=== PATIENT | female | born 1960 | race African-American/Black ===

== ENCOUNTER 2016-06-12 09:13 | Inpatient (IN) | payer OTHER ==
[~2016-06-12] VITALS: Ht 162.6 cm; Wt 73.5 kg
[~2016-06-12 09:13] MED LIST: ALPR0.5T96 PO; [UNRECOGNIZED DRUG - CODE]
[2016-06-12] MEDS ORDERED: NITROGLYCERIN 0.4MG TABLET SL SL PRN (10:00)
[2016-06-12 10:15] LABS: BASOPHILS % 2.5 % (0.0-2.0); DIFFERENTIAL COMMENT 0; EOSINOPHILS % 0.1 % (0.0-5.0); HEMATOCRIT. 35.1 % (36.0-48.0); HEMOGLOBIN. 11.7 g/dL (12.0-16.0); LYMPHOCYTES % 29.9 % (20.0-50.0); MEAN CORPUSCULAR HEMOGLOBIN 34.1 pg (28.0-32.0); MEAN CORPUSCULAR HGB CONC 33.2 g/dL (31.0-37.0); MEAN CORPUSCULAR VOLUME 102.7 fL (81.0-99.0); MEAN PLATELET VOLUME 7.6 fl (7.4-10.4); MONOCYTES % 5.8 % (2.0-8.0); NEUTROPHILS % 61.7 % (40.0-76.0); PLATELET 193 x1000/uL (130-400); RED BLOOD CELL COUNT 3.42 mill/uL (4.2-5.4); RED CELL DISTRIBUTION WIDTH 15.9 % (11.6-14.6); WHITE BLOOD COUNT 4.8 x1000/uL (4.5-11.0)
[2016-06-12 10:16] LABS: INR 1.1; PROTHROMBIN TIME 11.4 sec
[2016-06-12 10:23] LABS: ANION GAP 23; CALCIUM 8.5 mg/dL (8.5-10.1); CARBON DIOXIDE 21 mEq/L (21-32); CHLORIDE 105 mEq/L (98-107); INDEX HEMOLYSI 1 (1-3); INDEX ICTERIC 1 (1-4); INDEX LIPEMIC 1 (1-3); UREA NITROGEN BLOOD 12 mg/dL (7-21); eGFR > 60 mL/min (>60)
[2016-06-12 10:25] LABS: NT PRO B-TYPE NATRIURETIC PEP 111 pg/mL (5-125); TROPONIN I 0.19 ng/mL (0.00-0.04)
[2016-06-12 10:28] LABS: ETHANOL BLOOD 333 mg/dL
[2016-06-12] MEDS ORDERED: HYDROCODONE/ACETAMINOPHEN 5/325MG TABLET PO PRN (12:30)
[2016-06-12] MEDS ORDERED: MAGNESIUM/ALUMINUM HYDROXIDE/SIMETHICONE 30ML UDC PO PRN (12:30)
[2016-06-12] MEDS ORDERED: CLONIDINE 0.1MG TABLET PO PRN (12:30)
[2016-06-12] MEDS ORDERED: ONDANSETRON HCL 4MG/2ML VIAL IV PRN (12:30)
[2016-06-12] MEDS ORDERED: ACETAMINOPHEN 325MG TABLET PO PRN (12:30)
[2016-06-12] MEDS ORDERED: IPRATROPIUM/ALBUTEROL 0.5-3(2.5)MG/3ML NEB INH PRN (12:30)
[2016-06-12] MEDS ORDERED: MVI, ADULT NO.1 10 ML, FOLIC ACID 1 MG, THIAMINE HCL 100 MG in SODIUM CHLORIDE 0.9% 1,0... IV ONE ×4 (15:00)
[2016-06-12 15:04] VITALS: BP 120/74
[2016-06-12] MEDS: OMEPRAZOLE 20MG CAPSULE EXTENDED RELEASE PO SCH (15:37)
[2016-06-12] MEDS: CHLORDIAZEPOXIDE 25MG CAPSULE PO SCH ×2 (15:38→21:38)
[2016-06-12] MEDS: ENOXAPARIN 40MG/0.4ML SYR SUBCUT SCH (15:38)
[2016-06-12 15:51] VITALS: BP 120/74
[2016-06-12] MEDS: LORAZEPAM 2MG/ML CPJ IV PRN ×3 (16:54→21:38)
[2016-06-12 18:36] LABS: ALANINE AMINOTRANSFERASE 59 IU/L (13-61); ALBUMIN 3.2 g/dL (3.4-5.0); ANION GAP 19; BILIRUBIN DIRECT 0.1 mg/dL (0.0-0.2); CALCIUM 8.1 mg/dL (8.5-10.1); CARBON DIOXIDE 23 mEq/L (21-32); CHLORIDE 103 mEq/L (98-107); CREATINE KINASE 83 IU/L (26-192); CREATINE KINASE MB FRACTION 0.5 ng/mL (0.5-3.6); INDEX HEMOLYSI 1 (1-3); INDEX ICTERIC 1 (1-4); INDEX LIPEMIC 1 (1-3); TROPONIN I 0.19 ng/mL (0.00-0.04); UREA NITROGEN BLOOD 11 mg/dL (7-21); eGFR > 60 mL/min (>60)
[2016-06-12 20:00] VITALS: BP 116/69
[2016-06-12] MEDS ORDERED: ZOLPIDEM TARTRATE 5MG TABLET PO PRN (21:00)
[2016-06-12] MEDS: METOPROLOL TARTRATE 25MG TABLET PO SCH (21:38)
[2016-06-13] VITALS: BP 131/75
[2016-06-13] MEDS: SODIUM CHLORIDE 0.9% 1,000 ML IV SCH ×2 (00:51→12:26)
[2016-06-13 01:22] LABS: CREATINE KINASE MB FRACTION 0.5 ng/mL (0.5-3.6); TROPONIN I 0.21 ng/mL (0.00-0.04)
[2016-06-13 04:00] VITALS: BP 146/89
[2016-06-13] MEDS: OMEPRAZOLE 20MG CAPSULE EXTENDED RELEASE PO SCH (06:13)
[2016-06-13] MEDS: CHLORDIAZEPOXIDE 25MG CAPSULE PO SCH ×2 (06:13→14:01)
[2016-06-13 06:54] LABS: CLARITY URINE CLEAR (CLEAR); COLOR URINE YELLOW (YELLOW); GLUCOSE URINE NEGATIVE (NEGATIVE); KETONES URINE 3+ (NEGATIVE); LEUKOCYTE ESTERASE URINE NEGATIVE (NEGATIVE); NITRITE URINE NEGATIVE (NEGATIVE); OCCULT BLOOD URINE NEGATIVE (NEGATIVE); PROTEIN URINE TRACE (NEGATIVE); SPECIFIC GRAVITY URINE 1.031 (1.005-1.030); UROBILINOGEN URINE 0.2 E.U./dL (0.2-1.0)
[2016-06-13 06:58] LABS: BASOPHILS % 1.2 % (0.0-2.0); DIFFERENTIAL COMMENT 0; EOSINOPHILS % 1.2 % (0.0-5.0); HEMATOCRIT. 33.3 % (36.0-48.0); HEMOGLOBIN. 11.1 g/dL (12.0-16.0); LYMPHOCYTES % 34.4 % (20.0-50.0); MEAN CORPUSCULAR HEMOGLOBIN 33.7 pg (28.0-32.0); MEAN CORPUSCULAR HGB CONC 33.4 g/dL (31.0-37.0); MEAN CORPUSCULAR VOLUME 100.9 fL (81.0-99.0); MEAN PLATELET VOLUME 8.2 fl (7.4-10.4); MONOCYTES % 12.1 % (2.0-8.0); NEUTROPHILS % 51.1 % (40.0-76.0); PLATELET 176 x1000/uL (130-400); RED CELL DISTRIBUTION WIDTH 16.1 % (11.6-14.6); WHITE BLOOD COUNT 4.3 x1000/uL (4.5-11.0)
[2016-06-13] MEDS: LORAZEPAM 2MG/ML CPJ IV PRN (07:22)
[2016-06-13 07:31] LABS: THYROID STIMULATING HORMONE 2.1 uIU/mL (0.36-3.74)
[2016-06-13 08:00] VITALS: BP 115/76
[2016-06-13 08:13] LABS: MUCUS URINE 1+ /lpf (< = 2+); SQUAMOUS EPITHELIAL CELL URINE 1+ /lpf (RARE/1+)
[2016-06-13 08:14] LABS: BACTERIA URINE 2+; RBC URINE 0-2 /hpf (0-2); WBC URINE 0-2 /hpf (0-2)
[2016-06-13] MEDS ORDERED: REGADENOSON 0.4 MG/5 ML IV ONE ×2 (08:20→14:15)
[2016-06-13] MEDS ORDERED: ASPIRIN 81MG EC TABLET PO SCH (09:00)
[2016-06-13] MEDS ORDERED: MULTIVITAMINS,THER W-MINERALS TABLET PO SCH (09:00)
[2016-06-13] MEDS ORDERED: FOLIC ACID 1MG TABLET PO SCH (09:00)
[2016-06-13] MEDS ORDERED: THIAMINE HCL 100MG TABLET PO SCH (09:00)
[2016-06-13] MEDS: METOPROLOL TARTRATE 25MG TABLET PO SCH (09:17)
[2016-06-13 12:08] VITALS: BP 114/71
[2016-06-13] MEDS: ENOXAPARIN 40MG/0.4ML SYR SUBCUT SCH (14:01)
[2016-06-13] MEDS ORDERED: ATORVASTATIN CALCIUM 10MG TABLET PO SCH (21:00)
== END 2016-06-13 15:40 | disposition home or self-care (01) | DRG 198 ==
LOC: ER 10:32 → 6WST 11:03
PROVIDERS: ADMIT Internal Medicine; ATTEND Internal Medicine
DX: I25.118 Atherosclerotic heart disease of native coronary artery with other forms of angina pectoris (principal); I10 Essential (primary) hypertension; F17.210 Nicotine dependence, cigarettes, uncomplicated; F41.9 Anxiety disorder, unspecified; F10.229 Alcohol dependence with intoxication, unspecified; R74.8 Abnormal levels of other serum enzymes; Z88.6 Allergy status to analgesic agent; Z95.5 Presence of coronary angioplasty implant and graft; I25.2 Old myocardial infarction
CPT/HCPCS: 36415; 71010; 78452; 80048; 80061; 80076; 81001; 82550; 82553; 83880; 84443; 84484; 85025; 85610; 93005; 93017; 93306; 93970; 99285; A9500; G0482; J1650; J2060; J2405; J2785; J3411; J3490; J7030

== ENCOUNTER 2016-11-28 18:29 | Emergency (ER) | payer OTHER ==
[~2016-11-28] VITALS: Ht 162.6 cm; Wt 64.0 kg
[~2016-11-28 18:29] MED LIST changes: +ALPR0.5T PO; -ALPR0.5T96 PO; -[UNRECOGNIZED DRUG - CODE]
[2016-11-28] MEDS ORDERED: MECLIZINE 25MG TABLET PO ONE (19:45)
[2016-11-28] MEDS ORDERED: KETOROLAC 30MG/ML VIAL IV ONE (19:45)
[2016-11-28] MEDS ORDERED: SODIUM CHLORIDE 0.9% 1,000 ML IV ONE (19:45)
[2016-11-28] MEDS ORDERED: ONDANSETRON HCL 4MG/2ML VIAL IV ONE (19:45)
[2016-11-28 20:40] LABS: BASOPHILS % 1.2 % (0.0-2.0); EOSINOPHILS % 0.1 % (0.0-5.0); HEMATOCRIT. 35.9 % (36.0-48.0); LYMPHOCYTES % 19.4 % (20.0-50.0); MEAN CORPUSCULAR HEMOGLOBIN 33.2 pg (28.0-32.0); MEAN CORPUSCULAR VOLUME 99.1 fL (81.0-99.0); MEAN PLATELET VOLUME 7.8 fl (7.4-10.4); MONOCYTES % 12.3 % (2.0-8.0); PLATELET 270 x1000/uL (130-400); RED BLOOD CELL COUNT 3.63 mill/uL (4.2-5.4)
[2016-11-28 20:45] LABS: CHLORIDE 94 mEq/L (98-107)
[2016-11-28 20:51] LABS: CARBON DIOXIDE 21 mEq/L (21-32)
[2016-11-28 22:01] LABS: CLARITY URINE CLEAR (CLEAR); COLOR URINE YELLOW (YELLOW); GLUCOSE URINE NEGATIVE (NEGATIVE); KETONES URINE 4+ (NEGATIVE); LEUKOCYTE ESTERASE URINE NEGATIVE (NEGATIVE); NITRITE URINE NEGATIVE (NEGATIVE); OCCULT BLOOD URINE NEGATIVE (NEGATIVE); PROTEIN URINE 3+ (NEGATIVE); SPECIFIC GRAVITY URINE 1.028 (1.005-1.030)
[2016-11-28 22:28] VITALS: BP 148/85
== END 2016-11-28 22:58 | disposition home or self-care (01) ==
LOC: ER 18:29
DX: R51 Headache (principal); R42 Dizziness and giddiness; I25.2 Old myocardial infarction; F41.9 Anxiety disorder, unspecified; R11.2 Nausea with vomiting, unspecified; I51.9 Heart disease, unspecified; Z95.5 Presence of coronary angioplasty implant and graft
CPT/HCPCS: 36415; 70450; 80048; 81001; 85025; 96361; 96374; 96375; 99285; J1885; J2405; J7030; Z7610; J8597

== ENCOUNTER 2025-01-25 17:29 | Emergency (ER) | payer MEDICARE, OTHER ==
[~2025-01-25] VITALS: Ht 165.1 cm; Wt 85.0 kg
[~2025-01-25 17:29] MED LIST changes: +ASPI-1497 PO; +ATOR40TA70 PO; +CARV6.2548 PO; +FOLI-43 PO; +LISI20TA31 PO; +SPIR25TA6 PO; +ZOLP10TA6 PO; +vitamin b1 PO
[2025-01-25 17:49] VITALS: O2SAT 98
[2025-01-25] MEDS ORDERED: IBUP-2030 MT (18:53)
[2025-01-25 19:51] VITALS: BP 129/60; PULSE 80; RESP 14; TEMP 36.7; O2SAT 97
== END 2025-01-25 19:54 | disposition home or self-care (01) ==
LOC: ER 17:29
DX: M79.642 Pain in left hand (principal); F41.9 Anxiety disorder, unspecified; Z79.899 Other long term (current) drug therapy; Z88.5 Allergy status to narcotic agent
CPT/HCPCS: 99283; 73130; A6449